=== PATIENT | female | born 2000 | race Caucasian/White ===

== ENCOUNTER 2025-07-28 09:40 | Outpatient (REF) | payer OTHER, SELFPAY ==
--- NOTE | ~2025-07-28 | XR_ITS ---
CLINICAL HISTORY: CHRONIC COUGH 2 view chest x-ray. Comparison: None Findings: No consolidation or effusion. Cardiac and mediastinal contours are unremarkable. Bones unremarkable. Impression: 1. No acute pulmonary disease. This document has been electronically signed by: Patrick Franco MD on 07/30/2025 15:09:42
--- OUTSIDE RECORDS SUMMARY | 2025-07-28 09:48 | XMS_ITS | Encounter Summary ---
Author Organization [facility] ou and Home Health Address [address] [place] [address] Care Team Providers Care Revenue Cycle Consultant Name Role Phone Becky Guajardo DO Primary Care Provider Reason for Visit * Reason Comments Medication Refill Encounter Details Date Type Department Care Team (Late st Contact Info) Description 03/20/2021 Refill [facility] MARINE SERVICE STATION ATTENDANT & Midwifery at 3 [facility] [address] [facility], [address] [place] [address] Yomaira Bower DO 3 [facility] [address] [place] [phone] Medication Refill Social History Tobacco Use Types Packs/Day Years Used Date Smoking Tobacco: Never Smokeless Tobacco: Never Alcohol Use Standard Drinks/Week Comments Yes 0 (1 standard drink = 0.6 oz pur e alcohol) not regularly Comments No Sex and Gender Information Value Date Recorded Sex Assigned at Not on file Legal Sex Female 11:05 AM EST Gender Identity Not on file Sexual Orientation Not on file documented as of this encounter Miscellaneous Notes * Telephone Encounter - Tacho Gutiérrez RN - 03/28/2021 2:31 PM EDT Pt called for Rf of OCP scheduled annual exam for 05/02/21, will send to Dr Bower to review documented in this encounter Plan of Treatment Not on file documented as of this encounter Visit Diagnoses Not on filedocumented in this encounter Care Teams Revenue Cycle Consultant Relationship Specialty Start Date End Date Becky Guajardo DO [address] [place] [address] PCP - General Pediatrics 01/01/20 documented as of this encounter
--- OUTSIDE RECORDS SUMMARY | 2025-07-28 09:48 | XMS_ITS | Encounter Summary ---
Author Organization [facility] ou and Home Health Address [address] [place] [address] Care Team Providers Care Bus And Trolley Dispatcher Name Role Phone Becky Guajardo DO Primary Care Provider Reason for Visit * Reason Comments Medication Refill Encounter Details Date Type Department Care Team (Late st Contact Info) Description 08/12/2021 Refill [facility] AUDIO EXPERIENCE EXPERT & Midwifery at 3 [facility] [address] [facility], [address] [place] [address] Yomaira Bower DO 3 [facility] [address] [place] [phone] Medication Refill Social History Tobacco Use Types [...] on file Sexual Orientation Not on file COVID-19 Exposure Response Date Recorded In the last month, have you been in contact with someone who was confirmed or suspected to have Coronavirus / COVID-19? No / Unsure 08/01/2021 9:28 AM EST documented as of this encounter Plan of Treatment Not on file documented as of this encounter Visit Diagnoses Not on filedocumented in this encounter Care Teams Bus And Trolley Dispatcher Relationship Specialty Start Date End Date Becky Guajardo DO 1 [place] [address] PCP - General Pediatrics 01/01/20 documented as of this encounter
--- OUTSIDE RECORDS SUMMARY | 2025-07-28 09:48 | XMS_ITS | Encounter Summary ---
Author Organization [facility] ou and Home Health Address [address] [place] [address] Care Team Providers Care Yarder Puncher Name Role Phone Becky Guajardo DO Primary Care Provider Reason for Visit * Reason Comments Medication Refill Encounter Details Date Type Department Care Team (Late st Contact Info) Description 06/13/2021 Refill [facility] OUTPATIENT FACILITY PHYSICAL THERAPIST & Midwifery at 3 [facility] [address] [facility], [address] [place] [address] Yomaira Bower DO 3 [facility] [address] [place] [phone] Medication Refill Social History Tobacco Use Types [...] Telephone Encounter - Tacho Gutiérrez RN - 06/13/2021 2:47 PM EDT Pt has appnt 08/01 needs RF to hold her over documented in this encounter Plan of Treatment Not on file documented as of this encounter Visit Diagnoses Not on filedocumented in this encounter Care Teams Yarder Puncher Relationship Specialty Start Date End Date Becky Guajardo DO [address] [place] [address] PCP - General Pediatrics 01/01/20 documented as of this encounter
--- OUTSIDE RECORDS SUMMARY | 2025-07-28 09:48 | XMS_ITS | Encounter Summary ---
Author Organization [facility] ou and Home Health Address [address] [place] [address] Care Team Providers Care Dope Pourer Name Role Phone Becky Guajardo DO Primary Care Provider Encounter Details Date Type Department Care Team (Late st Contact Info) Description 09/06/2019 Scanned Document [facility] CERTIFIER & Midwifery at 3 [facility] 3 [facility], [facility] [address] [place] [address] Ric Herrera CNM 3 [facility] [address] [place] [phone] Social History Tobacco Use Types Packs/Day Years [...] on file documented as of this encounter Plan of Treatment Not on file documented as of this encounter Visit Diagnoses Not on filedocumented in this encounter Additional Health Concerns Infection Onset Date Last Indicated Resolved Time R/O COVID-19 01/01/2020 01/01/2020 01/07/2020 9:20 AM EDT documented as of this encounter Care Teams Dope Pourer Relationship Specialty Start Date End Date Becky Guajardo DO 1 [place] [address] PCP - General Pediatrics 01/01/20 documented as of this encounter
--- OUTSIDE RECORDS SUMMARY | 2025-07-28 09:48 | XMS_ITS | Encounter Summary ---
Author Organization [facility] ou and Home Health Address [address] [place] [address] Care Team Providers Care Rover Tender Name Role Phone Becky Guajardo DO Primary Care Provider Reason for Visit * Reason Comments Medication Refill Encounter Details Date Type Department Care Team (Late st Contact Info) Description 03/28/[address] [facility] CHARGE AUTHORIZER & Midwifery at 3 [facility] [address] [facility], [address] [place] [address] Yomaira Bower DO 3 [facility] [address] [place] [phone] Medication Refill Social History Tobacco Use Types [...] on filedocumented in this encounter Care Teams Rover Tender Relationship Specialty Start Date End Date Becky Guajardo DO 1 [place] [address] PCP - General Pediatrics 01/01/20 documented as of this encounter
--- OUTSIDE RECORDS SUMMARY | 2025-07-28 09:48 | XMS_ITS | Encounter Summary ---
Author Organization [facility] ou and Home Health Address [address] [place] [address] Care Team Providers Care Donations Attendant Name Role Phone Becky Guajardo DO Primary Care Provider Reason for Visit * Reason Comments Medication Refill Encounter Details Date Type Department Care Team (Late st Contact Info) Description 04/23/2021 Refill [facility] [employer] RETAILER SALES CONSULTANT & Midwifery at 3 [facility] 3 [facility], [address] [place] [address] Yomaira Bower DO 3 [facility] [address] [place] [phone] Medication Refill Social History Tobacco Use Types [...] on filedocumented in this encounter Care Teams Donations Attendant Relationship Specialty Start Date End Date Becky Guajardo DO 1 [place] [address] PCP - General Pediatrics 01/01/20 documented as of this encounter
--- OUTSIDE RECORDS SUMMARY | 2025-07-28 09:48 | XMS_ITS | Encounter Summary ---
Author Organization [facility] Address [address] [place] [address] Care Team Providers Care Supervisor Plating And Point Assembly Name Role Phone Becky Guajardo DO Primary Care Provider Reason for Referral * Physical Medicine (Routine) - Closed Specialty Diagnoses / Procedures Referred By Nestor lewis Referred To Contact Rehabilitation Diagnoses Dyspareunia in female Ivy Herring ND [address] [facility] [address] [place] [address] Phone: tel: fax: [place] [address] Phone: tel: fax: Referral ID Status Reason Start Date Expiration Date Visits Re quested Visits Authorized [id number] Closed 08/06/2021 08/06/2022 1 1 Encounter Details Date Type Department Care Team (Latest Contact Info) Description 08/06/2021 Transcribed Orders [facility] [phone] Ivy Herring ND [address] [facility] [address] [place] [address] Dyspareunia in female (Primary Dx) Social History Tobacco Use Types Packs/Day Years [...] as of this encounter Plan of Treatment Scheduled Referrals Name Type Priority Associated Diagnoses Order Schedule Ambulatory referral to Rehab Services (PT/OT/LAUNDRY FOLDER) Outpatient Referral Routine Dyspareunia in female Ordered: 08/06/2021 documented as of this encounter Visit Diagnoses Diagnosis Dyspareunia in female- Primary documented in this encounter Care Teams Supervisor Plating And Point Assembly Relationship Specialty Start Date End Date Becky Guajardo DO 1 [place] [address] PCP - General Pediatrics 01/01/20 documented as of this encounter
--- OUTSIDE RECORDS SUMMARY | 2025-07-28 09:48 | XMS_ITS | Encounter Summary ---
Author Organization [facility] and Home Health Address [address] [place] [address] Care Team Providers Care Livestock Nutrition Territory Manager Name Role Phone Becky Guajardo DO Primary Care Provider Reason for Visit * Reason Comments Medication Refill Encounter Details Date Type Department Care Team (Late st Contact Info) Description 05/16/2021 Refill [facility] DISTILLING DEPARTMENT SUPERVISOR & Midwifery at 3 [facility] [address] [facility], [facility] [address] [place] [address] Yomaira Bower DO [address] [facility] [address] [place] [phone] Medication Refill Social History Tobacco Use Types [...] encounter Miscellaneous Notes * Telephone Encounter - Yarely Brown - 05/16/2021 7:14 AM EDT Patient resched her annual to 08/01 documented in this encounter Plan of Treatment Not on file documented as of this encounter Visit Diagnoses Not on filedocumented in this encounter Care Teams Livestock Nutrition Territory Manager Relationship Specialty Start Date End Date Becky Guajardo DO [address] [place] [address] PCP - General Pediatrics 01/01/20 documented as of this encounter
--- OUTSIDE RECORDS SUMMARY | 2025-07-28 09:48 | XMS_ITS | Encounter Summary ---
Author Organization [facility] ou and Home Health Address [address] [place] [address] Care Team Providers Care Project Coordinator Name Role Phone Becky Guajardo DO Primary Care Provider Reason for Visit * Reason Comments Medication Refill Encounter Details Date Type Department Care Team (Late st Contact Info) Description 07/22/2021 Refill [facility] OXYGEN PLANT OPERATOR & Midwifery at 3 [facility] [address] [facility], [address] [place] [address] Yomaira Bower DO 3 [facility] [address] [place] [phone] Medication Refill Social History Tobacco Use Types [...] on filedocumented in this encounter Care Teams Project Coordinator Relationship Specialty Start Date End Date Becky Guajardo DO 1 [place] [address] PCP - General Pediatrics 01/01/20 documented as of this encounter
--- OUTSIDE RECORDS SUMMARY | 2025-07-28 09:48 | XMS_ITS | Encounter Summary ---
Author Organization [facility] Address [address] [place] [address] Care Team Providers Care Chain Saw Operator Name Role Phone Becky Guajardo Primary Care Provider [phone] Encounter Details Date Type Department Care Team (Late st Contact Info) Description 02/05/2022 Orders Only [facility] Interventional Radiology [address] [place] [address] Syed Roca MD [address] [place] [address] Social History Tobacco Use Types Packs/Day Years Used Date Smoking Tobacco: Never Smokeless Tobacco: Never Comments Unknown Sex and Gender Information Value Date Recorded Sex Assigned at Female 12/15/2021 10:44 AM EDT Legal Sex Female 4:00 PM EDT Gender Identity Female 12/15/2021 10:44 AM EDT Sexual Orientation Choose not to disclose 2021 10:44 AM EDT documented as of this encounter Plan of Treatment Not on file documented as of this encounter Visit Diagnoses Not on filedocumented in this encounter Care Teams Chain Saw Operator Relationship Specialty Start Date End Date Casandra, Becky PCP - General Pediatrics 01/21/22 documented as of this encounter
--- OUTSIDE RECORDS SUMMARY | 2025-07-28 09:48 | XMS_ITS | Encounter Summary ---
Author Organization [facility] Address [address] [place] [address] Care Team Providers Care Wind Energy Technician Name Role Phone Becky Guajardo Primary Care Provider [phone] Encounter Details Date Type Department Care Team (Late st Contact Info) Description 01/26/2022 Orders Only [facility] Interventional Radiology [address] [place] [address] Syed Roca MD [address] [place] [address] Social History Tobacco Use Types Packs/Day Years [...] on filedocumented in this encounter Care Teams Wind Energy Technician Relationship Specialty Start Date End Date Casandra, Becky PCP - General Pediatrics 01/21/22 documented as of this encounter
--- OUTSIDE RECORDS SUMMARY | 2025-07-28 09:48 | XMS_ITS | Encounter Summary ---
Author Organization [facility] ou and Home Health Address [address] [place] [address] Care Team Providers Care News Gathering Technician Name Role Phone Becky Guajardo DO Primary Care Provider Reason for Visit * Reason Comments Medication Refill Encounter Details Date Type Department Care Team (Late st Contact Info) Description 03/28/2021 Refill [facility] SOCIAL WORKER CLINICAL & Midwifery at 3 [facility] [address] [facility], [address] [place] [address] Yomaira Bower DO 3 [facility] [address] [place] [phone] Medication Refill Social History Tobacco Use Types [...] on filedocumented in this encounter Care Teams News Gathering Technician Relationship Specialty Start Date End Date Becky Guajardo DO 1 [place] [address] PCP - General Pediatrics 01/01/20 documented as of this encounter
--- OUTSIDE RECORDS SUMMARY | 2025-07-28 09:48 | XMS_ITS | Encounter Summary ---
Author Organization [facility] ou and Home Health Address [address] [place] [address] Care Team Providers Care Vehicle Dynamics Engineer Name Role Phone Becky Guajardo DO Primary Care Provider Reason for Visit * Reason Comments Medication Refill Encounter Details Date Type Department Care Team (Late st Contact Info) Description 07/12/2021 Refill [facility] DIRECTOR INSTRUMENTATION & Midwifery at 3 [facility] 3 [facility], [facility] [address] [place] [address] Yomaira Bower DO 3 [facility] [address] [place] [phone] Medication Refill Social History Tobacco Use Types [...] Telephone Encounter - Tacho Gutiérrez RN - 07/14/2021 8:54 AM EST Pt has annual scheduled 08/01/21 documented in this encounter Plan of Treatment Not on file documented as of this encounter Visit Diagnoses Not on filedocumented in this encounter Care Teams Vehicle Dynamics Engineer Relationship Specialty Start Date End Date Becky Guajardo DO [address] [place] [address] PCP - General Pediatrics 01/01/20 documented as of this encounter
--- OUTSIDE RECORDS SUMMARY | 2025-07-28 09:49 | XMS_ITS | Encounter Summary ---
Author Organization [facility] ou and Home Health Address [address] [place] [address] Care Team Providers Care High School Computer Science Teacher Name Role Phone Becky Guajardo DO Primary Care Provider Encounter Details Date Type Department Care Team (Late st Contact Info) Description 08/14/2019 Abstract [facility] BAR CAPTAIN & Midwifery at 3 [facility] [address] [facility], [address] [place] [address] Yomaira Bower DO 3 [facility] [address] [place] [phone] Social History Tobacco Use Types Packs/Day Years [...] documented as of this encounter Care Teams High School Computer Science Teacher Relationship Specialty Start Date End Date Becky Guajardo DO 1 [place] [phone] PCP - General Pediatrics 01/01/20 documented as of this encounter
--- OUTSIDE RECORDS SUMMARY | 2025-07-28 09:49 | XMS_ITS | Encounter Summary ---
Author Organization [facility] ou and Home Health Address [address] [place] [address] Care Team Providers Care Staff Nurse Icu Resource Team Name Role Phone Becky Guajardo DO Primary Care Provider Encounter Details Date Type Department Care Team (Late st Contact Info) Description 08/14/2019 Abstract [facility] OUTSOLE FLEXER & Midwifery at 3 [facility] 3 [facility], [address] [place] [address] Yomaira Bower DO 3 [facility] [address] [place] [phone] Social History Tobacco Use Types Packs/Day Years [...] documented as of this encounter Care Teams Staff Nurse Icu Resource Team Relationship Specialty Start Date End Date Becky Guajardo DO 1 [place] [phone] PCP - General Pediatrics 01/01/20 documented as of this encounter
--- OUTSIDE RECORDS SUMMARY | 2025-07-28 09:49 | XMS_ITS | Clinical Summary ---
Author Organization [place] [facility] Address [address] [place] [address] Care Team Providers Care Burnisher Name Role Phone Becky Guajardo DO Primary Care Provider Allergies No known active allergies Medications 1.5, 28, 1.5 mg-30 mcg (21)/75 mg (7) tablet TAKE 1 TABLET BY MOUTH EVERY DAY 28 tablet 07/14/2021 Active Active Problems Problem Noted Date Diagnosed Date Encounter for surveillance of contraceptive pill s 01/15/2020 PCOS (polycystic ovarian syndrome) 08/16/2019 Hirsutism 08/16/2019 Encounter for initial prescription of contracept bebe pills 08/16/2019 Family History Medical History Relation Name Comments Breast cancer Maternal Grandmother Breast cancer Mother Breast cancer Other Colon cancer Neg Hx Ovarian cancer Neg Hx Relation Name Status Comments Maternal Grandmother Mother Other Social History Tobacco Use Types Packs/Day Years [...] on file Sexual Orientation Not on file Last Filed Vital Signs Vital Sign Reading Time Taken Comments Blood Pressure 138/84 08/01/2021 9:35 AM EST Pulse 114 08/01/2021 9:35 AM EST Temperature - - Respiratory Rate - - Oxygen Saturation - - Inhaled Oxygen Concentration - - Weight 81.6 kg (180 lb) 08/01/2021 9:35 AM EST Height 160 cm (5' 3 ) 08/01/2021 9:35 AM EST Body Mass Index 31.89 08/01/2021 9:35 AM EST Plan of Treatment Health Maintenance Due Date Last Done Comments MMR Vaccines (1 of 1 - Standard series) 2002 HIV screening 2014 Varicella Vaccines (1 of 2 - 13+ 2-dose series) 2014 HPV vaccine series (1 - 3-do se series) 2016 Meningococcal B Vaccine (1 o f 2 - Standard) 2017 Chlamydia screening 2018 Hepatitis C screening 11/25/2019 Hepatitis B vaccine series ( 1 of 3 - 19+ 3-dose series) 2020 DTaP/TDaP Vaccines (2 - Td o r Tdap) 08/27/2022 07/30/2022 Cervical cancer screening 2022 Influenza vaccine 03/16/2025 05/31/2021 Covid-19 vaccine series ( season) 2025 05/02/2022, 01/03/2021, 12/06/2020 Tetanus adult (Td q 10,TDAP once) 07/30/2032 07/30/2022 RSV Immunization (1 - 1-dose 75+ series) 2076 HIB Vaccines Aged Out No longer eligi ble based on patient's age to complete this topic Hepatitis A Vaccines Aged Out No long er eligible based on patient's age to complete this topic IPV Vaccines Aged Out No longer eligi ble based on patient's age to complete this topic Meningococcal Vaccine Aged Out No ajnel hoda eligible based on patient's age to complete this topic Pneumococcal Vaccine (2 - 49 years) Aged Out No longer eligible b ased on patient's age to complete this topic Rotavirus Vaccines Aged Out No longer eligible based on patient's age to complete this topic Insurance [place] Member Subscriber Plan / Payer (Ef fective 2019-Present) Name:Tressa Byrd Relation to Subscriber:Self Name:Ann Marie Byrdelsa Payer ID:[id number] Group ID:Not on file Type:Not on file Address: [address] [place]ID [place] Member Subscriber Plan / Payer (Ef fective 2019-Present) Name:Tressa Byrd Relation to Subscriber:Self Name:Tressa Byrd Payer ID:[id number] Group ID:Not on file Type:Not on file Address: [address] [place]ID [place] Member Subscriber Plan / Payer (Ef fective 2019-Present) Name:Ann Marie Byrdelsa Relation to Subscriber:Self Name:Tressa Byrd Payer ID:[id number] Group ID:Not on file Type:Not on file Address: [address] [place] Care Teams Burnisher Relationship Specialty Start Date End Date Becky Guajardo DO 1 [place] [address] PCP - General Pediatrics 01/01/20
--- OUTSIDE RECORDS SUMMARY | 2025-07-28 09:49 | XMS_ITS | Encounter Summary ---
Author Organization [facility] ou and Home Health Address [address] [place] [address] Care Team Providers Care Production Supv Name Role Phone Becky Guajardo DO Primary Care Provider Encounter Details Date Type Department Care Team (Late st Contact Info) Description 08/15/2019 Scanned Document [facility] LEATHER BELT SHAPER & Midwifery at [address] [place] [address], [facility] [address] [place] [address] External, Provider Social History Tobacco Use Types Packs/Day Years [...] on file documented as of this encounter Procedures Procedure Name Priority Date/Time Associated Diagnosis Comments LAB SCAN Routine 07/12/2019 documented in this encounter Results * Lab Scan (07/12/2019) us Provider External LAB BLOOD ORDERABLES Final Res ult documented in this encounter Visit Diagnoses Not on filedocumented in this encounter Additional Health Concerns Infection Onset Date Last Indicated Resolved Time R/O COVID-19 01/01/2020 01/01/2020 01/07/2020 9:20 AM EDT documented as of this encounter Care Teams Production Supv Relationship Specialty Start Date End Date Becky Guajardo DO 1 [place] [address] PCP - General Pediatrics 01/01/20 documented as of this encounter
--- OUTSIDE RECORDS SUMMARY | 2025-07-28 09:49 | XMS_ITS | Clinical Summary ---
Author Organization [facility] Address [address] [place] [address] Care Team Providers Care Equipment Service Technician Name Role Phone Becky Guajardo Primary Care Provider [phone] Allergies No known active allergies Medications No known medications Active Problems Problem Noted Date Diagnosed Date Hirsutism 08/16/2019 PCOS (polycystic ovarian syndrome) 08/16/2019 Immunizations Immunization Administration Dates Next Due Covid-19, Pfizer, mRNA, [place] valent, PF 30 mcg/0.3 mL dose (for ages 12 and older) 01/03/2021,12/06/2020 Family History Medical History Relation Name Comments No Known Problems Father Breast cancer Mother Relation Name Status Comments Father Alive Mother Alive Social History Tobacco Use Types Packs/Day Years Used Date Smoking Tobacco: Never Smokeless Tobacco: Never Tobacco Cessation:Counseling Given: Not Answered Comments Unknown Sex and Gender Information Value Date Recorded Sex Assigned at Female 12/15/2021 10:44 AM EDT Legal Sex Female 4:00 PM EDT Gender Identity Female 12/15/2021 10:44 AM EDT Sexual Orientation Choose not to disclose 2021 10:44 AM EDT Last Filed Vital Signs Vital Sign Reading Time Taken Comments Blood Pressure 100/70 11/06/2024 11:03 AM EDT Pulse 84 11/06/2024 11:03 AM EDT Temperature 36.2 C (97.2 F) 11/06/2024 11:03 AM EDT Respiratory Rate 16 11/06/2024 11:03 AM EDT Oxygen Saturation 99% 11/06/2024 11:03 AM EDT Inhaled Oxygen Concentration - - Weight 88.9 kg (196 lb) 11/06/2024 11:03 AM EDT Height 157.5 cm (5' 2 ) 11/06/2024 11:03 AM EDT Body Mass Index 35.85 11/06/2024 11:03 AM EDT Plan of Treatment Health Maintenance Due Date Last Done Comments HIV Screening 2001 Hepatitis C Screening 2001 Pap Smear 2001 Varicella Vaccines (1 of 2 - 13+ 2-dose series) 2014 HPV Vaccines (1 - 3-dose series) 2016 Hepatitis B Vaccines (1 of 3 - 19+ 3-dose series) 2020 Alcohol/Substance Use Screening 08/16/2024 Social Drivers of Health Annual Screening 08/16/2024 Influenza Vaccine (#1) 2025 , 05/07/2023, 05/02/2022, Additional history exists COVID-19 Vaccine (2024- season) 2025 04/28/2024, 05/07/2023, 05/02/2022, Additional history exists Depression Screening and Follow-Up 11/06/2025 11/06/2024 DTaP,Tdap,and Td Vaccines (2 - Td or Tdap) 07/30/2032 07/30/2022 Meningococcal Vaccine Aged Out No janel hoda eligible based on patient's age to complete this topic Pneumococcal Vaccine: Pediatric (0-5 Years) and At-Risk Patients (6-50 Years) Aged Out No longer eligible based on patient's age to complete this topic Insurance NON [employer] [facility] Care Teams Equipment Service Technician Relationship Specialty Start Date End Date Becky Guajardo PCP - General Pediatrics 01/21/22
--- OUTSIDE RECORDS SUMMARY | 2025-07-28 09:49 | XMS_ITS | Encounter Summary ---
Author Organization [facility] Address [address] [place] [address] Care Team Providers Care Study Manager Name Role Phone Becky Guajardo DO Primary Care Provider Encounter Details Date Type Department Care Team (Late st Contact Info) Description 09/08/2019 Scanned Document [facility] at [address] [facility] [address] [facility], [address] [place] [address] Yomaira Bower DO 3 [facility] [address] [place] [id number] Social History Tobacco Use Types Packs/Day Years [...] documented as of this encounter Care Teams Study Manager Relationship Specialty Start Date End Date Becky Guajardo DO [address] [place] [id number] PCP - General Pediatrics 01/01/20 documented as of this encounter
== END 2025-07-28 09:41 | disposition home or self-care (01) ==
LOC: HO.XRAY 09:40
PROVIDERS: PCP Internal Medicine; Visit Provider Naturopath
DX: R05.3 Chronic cough (principal)
CPT/HCPCS: 71046

== ENCOUNTER → 2025-07-28 10:03 | Outpatient (BNV) | payer OTHER, SELFPAY | PROVIDERS: PCP Internal Medicine; Visit Provider Radiology Diagnostic Radiology | DX: R05.3 Chronic cough (principal) | CPT/HCPCS: 71046 ==